=== PATIENT | female | born 1970 ===

== ENCOUNTER 2018-12-03 08:27 | Day surgery (SDC) | payer OTHER ==
[~2018-12-03] VITALS: Ht 157.5 cm; Wt 67.1 kg
[2018-12-03 09:07] VITALS: BP 104/70
[2018-12-03 13:41] VITALS: BP 100/65
== END 2018-12-03 12:05 | disposition home or self-care (01) ==
LOC: EDBD 08:27 → GI 08:27 → OR 11:30 → GI 12:05
PROVIDERS: Internal Medicine
PROC: 0DBN8ZZ Excision of Sigmoid Colon, Via Natural or Artificial Opening Endoscopic (ICD-10-PCS; principal; 2018-12-03 11:30)
DX: Z12.11 Encounter for screening for malignant neoplasm of colon (principal); D12.5 Benign neoplasm of sigmoid colon; K57.30 Diverticulosis of large intestine without perforation or abscess without bleeding; K21.9 Gastro-esophageal reflux disease without esophagitis; Z68.28 Body mass index [BMI] 28.0-28.9, adult; Z98.51 Tubal ligation status
CPT/HCPCS: 45378; G0500; J1200; J1610; J2250; J2310; J3010; J3490